=== PATIENT | female | born 1960 | race Caucasian/White ===

== ENCOUNTER 2016-08-19 10:42 | Inpatient (IN) | payer BC ==
[~2016-08-19 10:42] MED LIST: ALBUTEROL SULF8.5 G1 IH; ALBUTEROL0.83 MG/ML INH; BAYER CHILDREN'81 MG PO; BYSTOLIC5 M1 PO; COUMADIN5 M2 PO; CYCLOBENZAPRINE10 M1 PO; DELSYM30 MG/5 M1 PO; DIOVAN; DIOVAN HCT; DIOVAN HCT 160/1 TAB PO; DIOVAN HCT 1601 EACH PO; DIOVAN160 M PO; DOXY-LEMMON100 MG PO; EQL FISH OIL 1,1 CA1 PO; EXCEDRIN EXTRA1 EAC3 PO; FLEXERIL10 MG PO; INDOMETHACIN50 M1 PO; LOVENOX SC; LOVENOX120 MG/0.1 SQ; LYSINE500 M1 PO; MOTRIN600 MG PO; NORCO 5/325 TAB1 TAB PO; NORVASC5 M1 PO; PEN-VEE K500 MG PO; PERCOCET 5/3251 TAB PO; PERCOCET PO; PREDNISONE20 MG PO; PROAIR HFA8.5 GM IH; THERAFLU COLD1 EAC1 PO; TRILIPIX135 MG PO; TYLENOL WITH C1 EACH PO; ULTRAM50 M1 PO; VITAMIN D10000 UNI1 PO; VITAMIN D10000 UNIT PO; ZITHROMAX250 M1 PO; ZITHROMAX250 MG PO; ZOFRAN4 MG PO; [UNRECOGNIZED DRUG - OTHER] PO
[2016-08-19] MEDS ORDERED: OMEPRAZOLE20 M3 PO (10:56)
[2016-08-19] MEDS ORDERED: MIMVEY LO 0.5-1 EACH PO (10:56)
[2016-08-19] MEDS ORDERED: LEXAPRO10 M2 PO (10:56)
[2016-08-19] MEDS ORDERED: LOPRESSOR100 M1 PO (10:57)
[2016-08-19] MEDS ORDERED: ULTRAM50 M1 PO (10:57)
[2016-08-19] MEDS ORDERED: MAXZIDE 37.5 M1 EAC1 PO (10:57)
[2016-08-19] MEDS ORDERED: WELLBUTRIN XL150 M1 PO (10:58)
[2016-08-19 11:32] LABS: BASO % 0.6 % (0-2); EOS % 4.6 % (0-7); EOSINOPHIL ABSOLUTE COUNT 0.3 tho/cmm (0.0-0.7); HCT-HEMATOCRIT 42.6 % (34.0-49.0); HGB-HEMOGLOBIN 14.4 gm/dl (12.0-15.5); IMMATURE GRANULOCYTES ABSOLUTE 0.03 tho/cmm (0-0.03); IMMATURE GRANULOCYTES PERCENT 0.5 % (0-0.3); LYMPH % 38.9 % (20-45); LYMPH ABSOLUTE COUNT 2.5 tho/cmm (0.8-4.5); MCH (MEAN CORPUSCULAR HGB) 30.5 pg (28.0-32.0); MCHC MEAN CORPUSCULAR HGB CONC 33.8 % (32.0-36.0); MCV (MEAN CELL VOLUME) 90.3 fl (82.0-96.0); MEAN PLATELET VOLUME 9.4 cmc (9.4-12.4); MONO % 6.5 % (0-12); MONOCYTE ABSOLUTE COUNT 0.4 tho/cmm (0.0-1.2); NEUTROPHIL ABSOLUTE COUNT 3.2 tho/cmm (1.6-8.0); NEUTROPHIL-AUTOMATED 3.2 tho/cmm (1.6-8.0); NEUTROPHILS % 48.9 % (40-80); PLATELET COUNT 262 tho/cmm (150-450); RED BLOOD COUNT 4.72 mil/cmm (4.00-5.20); RED CELL DISTRIBUTION WIDTH 12.9 % (12.4-16.4); WHITE BLOOD COUNT 6.5 tho/cmm (4.0-10.0)
[2016-08-19 11:37] LABS: INR 0.9 INR (0.9-1.1); PROTHROMBIN TIME 10.4 SECONDS (9.0-13.6)
[2016-08-19 11:48] LABS: ALBUMIN 3.6 g/dl (3.5-5.0); ALKALINE PHOSPHATASE 108 U/L (33-138); ALT/SGPT 33 U/L (12-78); ANION GAP 10 mmol/L (0-20); AST/SGOT 26 U/L (10-40); BILIRUBIN,TOTAL 0.4 mg/dl (0-1.5); BLOOD UREA NITROGEN 17 mg/dl (6-24); CALCIUM 8.8 mg/dl (8.5-10.5); CARBON DIOXIDE-VENOUS 27 mmol/L (22-32); CHLORIDE 110 mmol/l (96-110); CREATININE 0.99 mg/dl (0.50-1.10); GLUCOSE 116 mg/dL (70-110); SODIUM 143 mmol/L (135-145); eGFR VALUE FOR BLACK 73 mL/Min
[2016-08-19 11:49] LABS: POTASSIUM 4.2 mmol/L (3.7-5.1)
[2016-08-19] MEDS ORDERED: VITAMIN D10000 UNI1 PO (12:10)
[2016-08-19] MEDS ORDERED: ALEVE220 M3 PO (12:10)
[2016-08-19] MEDS ORDERED: BYSTOLIC5 M1 PO (12:11)
[2016-08-19] MEDS ORDERED: DIOVAN160 M1 PO (12:11)
[2016-08-19 12:48] LABS: ESR-ERYTHROCYTE SED RATE 14 mm/hr (0-30)
[2016-08-20 06:09] LABS: CHOLESTEROL 207 mg/dl (120-200); VLDL 59 mg/dl (0-30)
[2016-08-20 06:26] LABS: TRIGLYCERIDES 294 mg/dl (<149)
[2016-08-20 06:35] LABS: HDL CHOLESTEROL 52 mg/dl (40-60); LDL CHOLESTEROL 97 mg/dl (0-99); TSH-THYROID STIMULATING HORM. 2.83 uIU/ml (0.40-3.80)
[2016-08-21] MEDS ORDERED: KEPPRA250 M1 PO (16:19)
[2016-08-21] MEDS ORDERED: ELIQUIS5 M1 PO (16:20)
== END 2016-08-21 16:57 | DRG 101 ==
LOC: EDMED 10:42 → EMR2 13:52 → 5EB 15:47
PROVIDERS: Emergency Medicine; Psychiatry & Neurology Neurology; ADMIT Internal Medicine
DX: R56.9 Unspecified convulsions (principal); R47.01 Aphasia; I10 Essential (primary) hypertension; R27.0 Ataxia, unspecified; E78.5 Hyperlipidemia, unspecified; I45.10 Unspecified right bundle-branch block; M48.02 Spinal stenosis, cervical region; Z86.718 Personal history of other venous thrombosis and embolism; Z91.14 Patient's other noncompliance with medication regimen; E66.9 Obesity, unspecified; G89.29 Other chronic pain; Z86.73 Personal history of transient ischemic attack (TIA), and cerebral infarction without residual deficits; R51 Headache; R42 Dizziness and giddiness; R79.89 Other specified abnormal findings of blood chemistry; T46.5X6A Underdosing of other antihypertensive drugs, initial encounter; Z91.128 Patient's intentional underdosing of medication regimen for other reason
CPT/HCPCS: A9577; G8978-GP-CI; G8979-GP-CI; G8987-GO-CI; G8988-GO-CH; G8989-GO-CI; J1650; J7030